=== PATIENT | female | born 1970 | race Caucasian/White ===

== ENCOUNTER → 2017-11-28 | Outpatient (CLI) | payer OTHER ==
[2017-11-28 11:56] LABS: Basophils % (A) 0 %; Eosinophils # (A) 0.2 k/uL (0-0.7); Eosinophils % (A) 2 %; HCT 48.4 % (34.0-46.0); HGB 15.6 gm/dL (11.4-16.0); Lymphocytes # (A) 1.8 k/uL (1.0-4.8); Lymphocytes % (A) 24 %; MCH 29.2 pg (25.0-35.0); MCHC 32.1 g/dL (31.0-37.0); MCV 90.9 fL (80.0-100.0); Mean Platelet Volume 5.7; Monocytes # (A) 0.5 k/uL (0-1.0); Monocytes % (A) 6 %; Neutrophils % (A) 66 %; Platelet Count 362 k/uL (150-450); RBC 5.33 m/uL (3.80-5.40); RDW 13.3 % (11.5-15.5); WBC 7.6 k/uL (3.8-10.6)
[2017-11-28 12:17] LABS: ALT 46 U/L (9-52); AST 40 U/L (14-36); Albumin 4.4 g/dL (3.5-5.0); Alkaline Phosphatase 60 U/L (38-126); Amylase 59 U/L (30-110); Anion Gap 12 mmol/L; Blood Urea Nitrogen 11 mg/dL (7-17); Calcium 9.6 mg/dL (8.4-10.2); Carbon Dioxide 24 mmol/L (22-30); Chloride 100 mmol/L (98-107); Glucose 94 mg/dL (74-99); Lipase 66 U/L (23-300); Potassium 4.6 mmol/L (3.5-5.1); Sodium 136 mmol/L (137-145); Total Bilirubin 0.6 mg/dL (0.2-1.3); Total Protein 7.7 g/dL (6.3-8.2)
--- NOTE | 2017-11-28 17:01 | US ---
EXAMINATION TYPE: US gallbladder DATE OF EXAM: 11/28/2017 COMPARISON: NONE CLINICAL HISTORY: R10.11 RIGHT UPPER QUAD PAIN. EXAM MEASUREMENTS: Liver Length: 15.8 cm Gallbladder Wall: 0.2 cm CBD: 0.2 cm Right Kidney: 10.6 x 4.2 x 4.2 cm Patient of large body habitus with extensive midline bowel gas. Pancreas: wnl Liver: Increased attenuation, very limited visualization of vessels suggestive of fatty infiltrate, some probable focal fatty sparing adjacent to gallbladder. Gallbladder: There appears to be sludge in the gallbladder. Evidence for sonographic Guidry's sign: Yes CBD: wnl, limited visualization Right Kidney: wnl, Preliminary results given to Radha Carrion at 's office immediately following exam. IMPRESSION: 1. Sludge within gallbladder
== END | disposition home or self-care (01) ==
LOC: RADUSWWP 11:30
PROVIDERS: ATTEND Physician Assistant
DX: K82.8 Other specified diseases of gallbladder (principal); R10.13 Epigastric pain
CPT/HCPCS: 36415; 76705; 80053; 82150; 83690; 85025

== ENCOUNTER → 2017-12-12 | Outpatient (CLI) | payer OTHER | END | disposition home or self-care (01) | LOC: LABPAT 12:26 | PROVIDERS: ATTEND Surgery Plastic and Reconstructive Surgery | DX: Z01.818 Encounter for other preprocedural examination (principal); K80.20 Calculus of gallbladder without cholecystitis without obstruction | CPT/HCPCS: 93005 ==

== ENCOUNTER 2017-12-17 07:18 | Day surgery (SDC) | payer OTHER ==
[2017-12-11 16:08] VITALS: BMI 37.5
--- NOTE | 2017-12-16 17:27 | P.GSHP ---
History of Present Illness H&P Date: 12/17/17 CHIEF COMPLAINT: Cholecystitis HISTORY OF PRESENT ILLNESS: The patient is a 47-year-old female who presents with history of epigastric including right upper quadrant abdominal pain. She underwent diagnostic studies for her gallbladder. Separately her clinical picture was consistent with cholecystitis. Now she presents for surgical intervention. PAST MEDICAL HISTORY: Please see list PAST SURGICAL HISTORY: Please see list MEDICATIONS: Please see list ALLERGIES: Denies. SOCIAL HISTORY: No illicit drug use or recent tobacco use FAMILY HISTORY: Pertinent for gallbladder disease REVIEW OF ORGAN SYSTEMS: CONSTITUTIONAL: No reports of fevers or chills. HEENT: Denies any troubles with the vision or hearing. ENDOCRINE: No reports of hypothyroidism. No diabetes. RESPIRATORY: No recent pneumonias. CARDIOVASCULAR: Denies chest pain or palpitations GI: No blood in stools or constipation. MUSCULOSKELETAL: Has occasional joint pain including back pain. NEURO: No seizure disorders or headaches. No recent stroke. PSYCH: No depression or suicidal ideation. GENITOURINARY: No active blood in urine. No urinary hesitancy. HEMATOLOGIC: No personal or family history of DVTs or pulmonary emboli. SKIN: No skin cancer. PHYSICAL EXAM: VITAL SIGNS: Afebrile vital signs stable GENERAL: Well-developed pleasant in no acute distress. HEENT: No scleral icterus. Extraocular movements grossly intact. Moist buccal mucosa. NECK: Supple without lymphadenopathy. CHEST: Unlabored respirations. Equal bilateral excursions. CARDIOVASCULAR: Regular rate regular rhythm rhythm. Distal 2+ pulses. ABDOMEN: Soft, nondistended. Tender along the epigastrium and right upper quadrant. MUSCULOSKELETAL: No clubbing, cyanosis, or edema. NEURO: Cranial nerves II to XII within normal limits. No focal or lateralizing signs. PSYCH: Alert and oriented to person, place and time. SKIN: Well-perfused good skin turgor. ASSESSMENT: 1. Epigastric and right upper quadrant abdominal pain 2. Chronic cholecystitis 3. Symptomatic gallstones. PLAN: 1. Will need a robotic cholecystectomy possible open. Benefits and risks were described. 2. Heparin for DVT prophylaxis 5000 units. 3. Antibiotic prophylaxis. Past Medical History Past Medical History: Asthma, Diabetes Mellitus, Hyperlipidemia, Hypertension Additional Past Medical History / Comment(s): GALLBLADDER DISORDER History of Any Multi-Drug Resistant Organisms: None Reported Past Surgical History: No Surgical Hx Reported Additional Past Surgical History / Comment(s): NO PRIOR SX HX Past Anesthesia/Blood Transfusion Reactions: No Reported Reaction Additional Past Anesthesia/Blood Transfusion Reaction / Comment(s): NO PRIOR SX OR ANESTHESIA HX Smoking Status: Never smoker - Past Family History Mother Family Medical History: No Reported History Medications and Allergies Home Medications Medication Instructions Recorded Confirmed Type FLUoxetine HCL [PROzac] 10 mg PO DAILY 12/11/17 12/11/17 History Fenofibrate Nanocrystallized 145 mg PO HS 12/11/17 12/11/17 History [Fenofibrate] Lisinopril [Prinivil] 20 mg PO DAILY 12/11/17 12/11/17 History Simvastatin [Zocor] 20 mg PO HS 12/11/17 12/11/17 History metFORMIN HCL [Glucophage] 500 mg PO BID 12/11/17 12/11/17 History Allergies Allergy/AdvReac Type Severity Reaction Status Date / Time No Known Allergies Allergy Verified 12/11/17 16:03
[~2017-12-17 07:18] MED LIST: DEXAMETHASONE SOD PHOSPHATE 10 MG/ML 1 ML VIAL IV ONE; HEPARIN SODIUM,PORCINE 5,000 UNIT/ML 1 ML VIAL SQ ONE; HYDROmorphone 0.5 MG/0.5 ML SYRINGE IVP PRN; INDOCYANINE GREEN 25 MG VIAL IV STA; LACTATED RINGERS 1,000 ML IV SCH; ONDANSETRON 4 MG/2 ML VIAL IVP ONE; ceFAZolin IN SWFI 2 GM/20 ML SYRINGE IVP ONE
[2017-12-17 07:45] LABS: Glucose,Whole Blood 79 mg/dL (75-99)
[2017-12-17] MEDS ORDERED: BUPIVACAIN-EPI 0.25%-1:200,000 30 ML VIAL SQ ONE ×2 (08:18→08:43)
[2017-12-17] MEDS ORDERED: LIDOCAINE 1% INJ 10MG/ML (20 ML MDV) ONE (08:22)
[2017-12-17] MEDS ORDERED: fentaNYL (PF) 50 MCG/ML 2 ML AMP ONE (08:22)
[2017-12-17] MEDS ORDERED: ROCURONIUM BROMIDE 10 MG/ML 10 ML VIAL IV ONE (08:22)
[2017-12-17] MEDS ORDERED: MIDAZOLAM 2 MG/2 ML VIAL ONE (08:22)
[2017-12-17] MEDS ORDERED: ePHEDrine SULFATE/0.9% NACL/PF 50 MG/5 ML SYRINGE IV ONE (08:22)
[2017-12-17] MEDS ORDERED: KETOROLAC 30 MG/ML 1 ML VIAL ONE (08:22)
[2017-12-17] MEDS ORDERED: NEOSTIGMINE 1 MG/ML 10 ML VIAL ONE (08:22)
[2017-12-17] MEDS ORDERED: PROPOFOL 10 MG/ML 20 ML VIAL IV ONE (08:22)
[2017-12-17] MEDS ORDERED: SUCCINYLCHOLINE CHLORIDE 100 MG/5 ML SYR IV ONE (08:22)
[2017-12-17] MEDS ORDERED: GLYCOPYRROLATE 0.2 MG/ML 2 ML VIAL ONE (08:22)
--- NOTE | 2017-12-17 09:25 | P.OP ---
Date of Procedure: 12/17/17 Description of Procedure: SURGEON: MADDIE RETANA MD PREOPERATIVE DIAGNOSES: 1. Symptomatic gallstones 2. Chronic cholecystitis 3. Morbid obesity due to excess calories, BMI 37.5 4. Diabetes type 2 [id number] 5. Hypertensive heart disease 6. Depressive disorder 7. Hyperlipidemia POSTOPERATIVE DIAGNOSES: 1. Symptomatic gallstones 2. Chronic cholecystitis 3. Morbid obesity due to excess calories, BMI 37.5 4. Diabetes type 2 [id number] 5. Hypertensive heart disease 6. Depressive disorder 7. Hyperlipidemia 8. Hepatomegaly OPERATION: Robotic-assisted da Samm Xi laparoscopic cholecystectomy, multiport with FIREFLY ESTIMATED BLOOD LOSS: 5 mL. SPECIMENS REMOVED: Gallbladder. COMPLICATIONS: None. OPERATIVE FINDINGS: 1. Chronic cholecystitis INDICATIONS: The patient is a 47-year-old female who presents with cholelcystitis. Surgical intervention with a laparoscopic cholecystectomy was described at length including injury to the biliary tree, bleeding, infection, need for further surgery. Informed consent was obtained. Robotic assisted laparoscopic approach was described. Benefits and risks of the procedure including but not limited to bleeding, infection, injury to the biliary tree was described. Informed consent was obtained. DESCRIPTION OF PROCEDURE: Patient was brought to the operating room, placed in supine position. After general induction, the abdomen had been prepped and draped in standard sterile fashion. The robotic da Samm XI system was primed. After a timeout protocol was performed, the patient had been prepped and draped in standard sterile fashion. The patient was injected with indocyanine green. A 5 mm 0 degrees laparoscopic trocar entry was performed along the left upper quadrant. The abdomen insufflated to 15 mmHg pressure which she tolerated well. Diagnostic laparoscopy demonstrated no injury to bowel viscera or mesentery. The liver surface was unremarkable. Next, two 8 mm robotic ports were placed along the right upper abdomen. The camera 8-mm port was maintained along the epigastrium. Another 8 mm port was placed along the left upper abdominal wall after exchanging the 5 mm port. Please note that the ports were placed at least 10 to 15 cm away from the target anatomy of the gallbladder. The robot was docked along the left lateral abdomen. The patient was repositioned in reverse Trendelenburg position. Using a grasper for arm 3, a grasper for arm 4, including hook cautery for arm 1 , the robotic system was docked and primed as described. Instruments were interchanged by the assistant analyst including hook cautery, Bovie cautery and clip appliers. I had sat at the console. Adhesions were identified along the infundibulum of the gallbladder and addressed using hook cautery. The gallbladder fundus was retracted over the dome of the liver. Initial attention was brought to the infundibulum which was gently retracted in the inferior lateral approach. Using a grasper, the cystic duct including the cystic artery was carefully skeletonized. FIREFLY was used to identify the cystic artery and cystic structures. Large PLASTIC clips were used throughout the entire case. Using a clip welding manager 2 clips were placed proximally, and 1 clip was placed distally along the cystic duct and then cauterized with the cautery. Again care was taken to avoid any injury to the biliary tree as the common bile duct was clearly visualized during this portion of dissection. Next, the cystic artery was similarly clipped and cauterized. Electro-Bovie cautery was used to remove the gallbladder from the hepatic fossa. Hemostasis was checked and found to be adequate. The robot was undocked. I re-scrubbed into the case. Using a 10 mm Endo Catch bag via the left upper quadrant incision, the specimen was removed from the abdominal cavity. All pneumoperitoneum instruments were evacuated from the abdominal cavity. The incisions were reapproximated using 4-0 Monocryl in an interrupted subcuticular fashion. Fascial defects were less than 8 mm in size. Please note along the trocar sites, local anesthetic was placed as a field block prior to insertion of all instruments. Liquid glue was applied to the skin. At the end of the procedure needle, sponge, and instrument count had been verified correct by the surgical forceps fabricator. The patient was transferred to postanesthesia care unit in stable condition. Intraoperative films were shared with the patient's family who were very pleased with the level of care. Console time 19 minutes Plan - Discharge Summary New Discharge Prescriptions: No Action Simvastatin [Zocor] 20 mg PO HS metFORMIN HCL [Glucophage] 500 mg PO BID FLUoxetine HCL [PROzac] 10 mg PO DAILY Lisinopril [Prinivil] 20 mg PO DAILY Fenofibrate Nanocrystallized [Fenofibrate] 145 mg PO HS Discharge Medication List FLUoxetine HCL [PROzac] 10 mg PO DAILY 12/11/17 [History] Fenofibrate Nanocrystallized [Fenofibrate] 145 mg PO HS 12/11/17 [History] Lisinopril [Prinivil] 20 mg PO DAILY 12/11/17 [History] Simvastatin [Zocor] 20 mg PO HS 12/11/17 [History] metFORMIN HCL [Glucophage] 500 mg PO BID 12/11/17 [History]
[2017-12-17 09:47] VITALS: RESP 16; TEMP 97.8
[2017-12-17 09:51] LABS: Glucose,Whole Blood 112 mg/dL (75-99)
[2017-12-17] MEDS ORDERED: HYDROcodone/APAP 5-325MG 1 EACH TAB PO ONE (11:01)
[2017-12-17 11:05] VITALS: BP 107/69; PULSE 90
== END 2017-12-17 11:48 | disposition home or self-care (01) ==
LOC: OR 07:18
PROVIDERS: ATTEND Surgery Plastic and Reconstructive Surgery
DX: K81.1 Chronic cholecystitis (principal); K66.0 Peritoneal adhesions (postprocedural) (postinfection); E66.01 Morbid (severe) obesity due to excess calories; Z68.37 Body mass index [BMI] 37.0-37.9, adult; E11.9 Type 2 diabetes mellitus without complications; I10 Essential (primary) hypertension; I11.9 Hypertensive heart disease without heart failure; F32.9 Major depressive disorder, single episode, unspecified; E78.5 Hyperlipidemia, unspecified; R16.0 Hepatomegaly, not elsewhere classified; F41.9 Anxiety disorder, unspecified; J45.909 Unspecified asthma, uncomplicated; Z79.84 Long term (current) use of oral hypoglycemic drugs; Z79.899 Other long term (current) drug therapy
CPT/HCPCS: 47562; S2900; 88304

== ENCOUNTER → 2018-06-12 | Outpatient (CLI) | payer OTHER ==
--- NOTE | 2018-06-12 09:36 | US ---
EXAMINATION TYPE: US abdomen complete DATE OF EXAM: 06/12/2018 COMPARISON: NONE CLINICAL HISTORY: R10.10 Upper abdominal pain. EXAM MEASUREMENTS: Liver Length: 18.0 cm Gallbladder Wall: Surgically absent CBD: 0.4 cm Spleen: 9.9 cm Right Kidney: 11.0 4.6 x 4.8 cm Left Kidney: 10.0 x 6.5 x 4.8 cm Large body habitus, patient has large abdomen. Pancreas: Obscured by bowel gas Liver: There is increased echogenicity of the hepatic parenchyma with diminished visualization of th e portal triads most commonly relating to hepatic steatosis and limiting evaluation for underlying he patic masses. Gallbladder: Surgically absent Evidence for sonographic Guidry's sign: no CBD: limited visualization Spleen: wnl Right Kidney: Inferior pole obscured by bowel gas Left Kidney: wnl Upper IVC: wnl Abd Aorta: mostly obscured by bowel gas The intrahepatic portion of the IVC and proximal abdominal aorta are within normal limits. There is no evidence of cholelithiasis. Common bile duct is unremarkable. The visualized portions of the torres creas are homogenous. The spleen is unremarkable. Kidneys are symmetric and free of hydronephrosis. No renal lesions are seen. IMPRESSION: 1. Findings most commonly related to hepatic steatosis. Correlate with liver function tests. 2. Obscuration of the pancreas by overlying bowel gas.
== END | disposition home or self-care (01) ==
LOC: RADUSWWP 08:04
PROVIDERS: ATTEND Family Medicine
DX: K76.0 Fatty (change of) liver, not elsewhere classified (principal); R14.0 Abdominal distension (gaseous); R10.11 Right upper quadrant pain; R10.12 Left upper quadrant pain; Z90.49 Acquired absence of other specified parts of digestive tract
CPT/HCPCS: 76700

== ENCOUNTER → 2022-11-01 | Outpatient (CLI) | payer OTHER ==
--- NOTE | 2022-11-01 08:29 | US ---
EXAMINATION TYPE: US abdomen complete DATE OF EXAM: 11/01/2022 COMPARISON: US CLINICAL INDICATION: Female, 52 years old with history of R1011 R UPPER QUAD PAIN; Pt states RUQ pain , GB removed 8 yrs ago TECHNIQUE: Multiple sonographic images of the abdomen are obtained. FINDINGS: EXAM MEASUREMENTS: Liver Length: 19.6 cm CBD: 0.5 cm Spleen: 10.4 cm Right Kidney: 11.1 x 5.3 x 5.3 cm Left Kidney: 10.7 x 6.5 x 5.2 cm MIDDLE STITCHER NOTES: Obese pt, difficult exam, limited views Pancreas: wnl, tail obscured by overlying bowel gas Liver: Enlarged, heterogeneous, difficult to penetrate Gallbladder: Surgically absent CBD: wnl Spleen: Multiple granulomas Right Kidney: No evidence of hydro Left Kidney: No evidence of hydro Upper IVC: wnl Abd Aorta: wnl, distal portion gassed out The visualized portions of the pancreas are unremarkable. The tail is obscured by overlying bowel gas . The liver is enlarged with heterogenous with increased echotexture. It is difficult to penetrate. T his limits evaluation for intrahepatic masses. No gross evidence of intrahepatic ductal dilatation, c ystic structure or solid mass. Gallbladder is surgically absent. Common bile duct is within normal li mits. Multiple calcified granulomas within the nonenlarged spleen. The intrahepatic portion of the IV C and proximal abdominal aorta are within normal limits. The distal portion is obscured by overlying bowel gas. It is unremarkable without evidence of hydronephrosis, shadowing calculi, or solid mass. C ortical medullary differentiation is maintained. IMPRESSION: Limited examination due to patient's body habitus and overlying bowel gas. 1. No ultrasound evidence for acute process. 2. Hepatic steatosis.
--- NOTE | 2022-11-01 08:55 | MM ---
Reason for Exam: Screening (asymptomatic). Patient History: Menarche at age 15. Patient has no children. Last menstrual period: 05/31/2022 Risk Values: Krystin 5 year model risk: 1.1%. NCI Lifetime model risk: 8.8%. Tissue Density: There are scattered fibroglandular densities. Findings: Analyzed By CAD. There is no suspicious group of microcalcifications or new suspicious mass in either breast. Previously seen asymmetry within the medial right breast on CC view is no longer visualized. Overall Assessment: Negative, BI-RAD 1 Management: Screening Mammogram of both breasts in 1 year. A clinical breast exam by your physician is recommended on an annual basis and results should be correlated with mammographic findings. Note on Krystin scores and lifetime risk: 1. A Krystin score greater than 3% is considered moderate risk. If this is the case, consider specialist referral to assess eligibility for a risk reducing agent. If overall lifetime risk for the development of breast cancer is 20% or higher, the patient may qualify for future screening with alternating mammogram and breast MRI. Electronically signed and approved by: Keith Calloway D.O.
== END | disposition home or self-care (01) ==
LOC: RADUSWWP 06:50
PROVIDERS: ATTEND Family Medicine
DX: Z12.31 Encounter for screening mammogram for malignant neoplasm of breast (principal); K76.0 Fatty (change of) liver, not elsewhere classified; R10.11 Right upper quadrant pain
CPT/HCPCS: 76700; 77063; 77067